=== PATIENT | female | born 1975 | race Two or more races ===

== ENCOUNTER 2019-06-12 14:27 | Inpatient (IN) | payer MEDICAID ==
[~2019-06-12] VITALS: Ht 154.9 cm; Wt 101.0 kg
[2019-06-12 15:29] LABS: Basophils # (auto) 0.1 uL; Basophils % (auto) 0.8 % (0.0-2.0); Eosinophils # (auto) 0.2 uL; Eosinophils % (auto) 2.7 % (0.0-7.0); Hematocrit 39.6 % (36.0-46.0); Hemoglobin 12.7 g/dL (12.2-16.2); Lymphocytes # (auto) 2.1 uL; Lymphocytes % (auto) 24.9 % (10.0-50.0); Mean Corpuscular Hemoglobin 29.8 pg (28.0-32.0); Mean Corpuscular Hgb Conc. 32.1 g/dL (32.0-36.0); Mean Corpuscular Volume 92.7 fL (80.0-100.0); Monocytes # (auto) 0.4 uL; Monocytes % (auto) 4.8 % (0.0-12.0); Neutrophils # (auto) 5.7 uL; Neutrophils % (auto) 66.8 % (37.0-80.0); Nucleated Red Blood Cells % 0.1 %; Platelet Count (auto) 334 10^3/uL (140-450); Red Blood Cells 4.27 10^6/uL (4.0-5.20); Red Cell Distribution Width 14.9 % (11.8-14.3); White Blood Cell 8.5 10^3/uL (4.4-10.8)
[2019-06-12 15:46] LABS: INR 0.93 (0.9-1.15); Partial Thromboplastin Time 25.4 sec (23.64-32.05)
[2019-06-12 15:51] LABS: Albumin 3.4 g/dL (3.4-5.0); Anion Gap 7 (5-15); BUN/Creatinine Ratio 16.3; Blood Urea Nitrogen 13 mg/dL (7-18); Calcium 8.2 mg/dL (8.5-10.1); Carbon Dioxide 26 mmol/L (21-32); Chloride 107 mmol/L (98-107); GFR African American 101 mL/min; GFR Non-African American 83 mL/min; Glucose 106 mg/dL (74-106); Potassium 3.7 mmol/L (3.5-5.1); Sodium 140 mmol/L (136-145)
[2019-06-12 15:56] LABS: Alanine Aminotransferase 45 U/L (13-56); Alkaline Phosphatase 121 U/L (45-117); Aspartate Aminotransferase 32 U/L (15-37); Bilirubin, Total 0.4 mg/dL (0.2-1.0); Total Protein 7.4 g/dL (6.4-8.2)
[2019-06-12] MEDS ORDERED: HYDROcodone-ACET 5/325MG TAB PO PRN (17:15)
[2019-06-12] MEDS ORDERED: NITROGLYCERIN 0.4MG/HR TOPICAL PATCH TD ONE (17:15)
[2019-06-12] MEDS ORDERED: CARVEDILOL 3.125 MG TAB PO ONE (17:15)
[2019-06-12] MEDS ORDERED: FUROSEMIDE 20 MG/2 ML VIAL IV ONE (17:15)
[2019-06-12] MEDS ORDERED: ACETAMINOPHEN 500 MG TAB PO PRN (17:15)
[2019-06-12] MEDS ORDERED: NITROGLYCERIN 0.4 MG SL TAB SL PRN (17:15)
[2019-06-12] MEDS ORDERED: MORPHINE SULF INJ 2 MG/ML SYRINGE 1ML IV PRN (17:15)
[2019-06-12] MEDS ORDERED: ONDANSETRON HCL 4 MG/2 ML VIAL IV PRN (17:15)
[2019-06-12 18:39] LABS: Urine Bacteria FEW /hpf (None Seen); Urine Blood Negative /uL (Negative); Urine Specific Gravity 1.019 (1.001-1.035); Urine WBC 4 /hpf (0 - 5)
[2019-06-12 18:52] LABS: Alcohol, Urine < 3.0 mg/dL (0-5); Amphetamine Screen, Urine POSITIVE (NEGATIVE); Barbiturate Scree,Urine NEGATIVE (NEGATIVE); Benzodiazephine Screen, Urine NEGATIVE (NEGATIVE); Cannabinoid Screen, Urine POSITIVE (NEGATIVE); Cocaine Screen, Urine NEGATIVE (NEGATIVE); Phencyclidine Screen, Urine NEGATIVE (NEGATIVE)
[2019-06-12 18:59] LABS: Opiate Scree,Urine NEGATIVE (NEGATIVE)
[2019-06-12 20:08] VITALS: BP 148/95
--- NOTE | 2019-06-12 20:08 | NUR ---
Telemetry admit from [facility] LOMAS admitted to Telemetry unit after SBAR received. Patient oriented to BELINDA MELENDEZ RN primary RN, unit, room, bed, and unit policies regarding patient care and visiting hours. Patient now on continuous telemetry monitoring, tele box # [id number] and telemetry reading on arrival to unit is sinus rhythm. Patient placed on bedside oxygen, weighed by bedscale and encouraged to call if they need something. All questions and concerns addressed, patient verbalized understanding.
--- NOTE | 2019-06-12 20:10 | NUR ---
Patient provided list of home medications she is suppose to be taken. List was entered into electronic chart and copy was placed in hard chart as well. Patient stated she has not been taking those medications but wanted us to be aware.
[2019-06-12] MEDS ORDERED: INFLUENZA QUAD 2019-2020 0.5ml SYRG IM ONE (21:15)
[2019-06-12] MEDS ORDERED: FAMO-12 PO (21:19)
[2019-06-12] MEDS ORDERED: CARV25TA55 PO (21:19)
[2019-06-12] MEDS ORDERED: LISI10TA6 PO (21:19)
[2019-06-12] MEDS ORDERED: ATOR10TA52 PO (21:19)
[2019-06-12] MEDS ORDERED: ASP81EC PO (21:19)
[2019-06-12] MEDS ORDERED: SPIR25TA8 PO (21:19)
[2019-06-12] MEDS ORDERED: METF-370 PO (21:19)
[2019-06-12] MEDS ORDERED: FURO1TAB31 PO (21:19)
[2019-06-12 22:00] VITALS: BP 140/87
[2019-06-12] MEDS: ATORVASTATIN 20 MG TAB PO SCH (22:21)
[2019-06-12] MEDS: CARVEDILOL 3.125 MG TAB PO SCH (22:21)
--- NOTE | 2019-06-13 01:12 | NUR ---
Hospitalist jordynd: Hospitaljory murillo d/t patient being very anxious and restless. Patient is tossing and turning in bed, b Addendum: 06/13/19 at 0115 by BELINDA MELENDEZ RN RN Patient is tossing and turning in bed appearing to have a panic attack. Hospitalist returned page immediately and new orders received.
[2019-06-13] MEDS ORDERED: LORazepam 0.5 MG TAB PO ONE (01:30)
[2019-06-13 05:00] VITALS: BP 163/113
--- NOTE | 2019-06-13 05:53 | NUR ---
Hospitalist paged: Hospitalist paged d/t patient having an elevated blood pressure of 163/113 with a HR of 79. Patient is currently asymptomatic with no discomfort or distress. RN to continue to monitor and assess patient.
[2019-06-13 06:00] LABS: Basophils # (auto) 0.1 uL; Eosinophils # (auto) 0.2 uL; Eosinophils % (auto) 2.7 % (0.0-7.0); Hematocrit 38.4 % (36.0-46.0); Hemoglobin 12.4 g/dL (12.2-16.2); Lymphocytes # (auto) 1.9 uL; Mean Corpuscular Hemoglobin 29.3 pg (28.0-32.0); Mean Corpuscular Hgb Conc. 32.4 g/dL (32.0-36.0); Mean Corpuscular Volume 90.6 fL (80.0-100.0); Monocytes # (auto) 0.5 uL; Monocytes % (auto) 5.8 % (0.0-12.0); Neutrophils # (auto) 5.3 uL; Neutrophils % (auto) 66.5 % (37.0-80.0); Nucleated Red Blood Cells % 0.1 %; Platelet Count (auto) 354 10^3/uL (140-450); Red Blood Cells 4.24 10^6/uL (4.0-5.20); Red Cell Distribution Width 14.6 % (11.8-14.3)
[2019-06-13 06:16] LABS: INR < 0.93 (0.9-1.15); Partial Thromboplastin Time 25.8 sec (23.64-32.05)
--- NOTE | 2019-06-13 06:20 | NUR ---
Hospitalist returned page: Hospitalist returned page and updated on patient's condition. RN informed to give patient her 1000 blood pressure medications now.
[2019-06-13] MEDS: CARVEDILOL 3.125 MG TAB PO SCH (06:22)
[2019-06-13 06:32] LABS: Calcium 8.4 mg/dL (8.5-10.1); Potassium 3.5 mmol/L (3.5-5.1)
--- NOTE | 2019-06-13 08:00 | NUR ---
Received pt resting sleeping comfortably in bed, call light within reach, no distress noted at this time, will continue to monitor pt.
[2019-06-13 08:24] VITALS: BP 142/99
[2019-06-13] MEDS: ASPirin-EC 81 mg tab PO SCH (09:40)
[2019-06-13] MEDS: FAMOTIDINE 20 MG TAB PO SCH (09:41)
[2019-06-13] MEDS ORDERED: FUROSEMIDE 20 MG/2 ML VIAL IV SCH (10:00)
[2019-06-13] MEDS ORDERED: NITROGLYCERIN 0.4MG/HR TOPICAL PATCH TD SCH (10:00)
[2019-06-13] MEDS ORDERED: LISINOPRIL 10 MG TAB PO SCH (10:00)
[2019-06-13 12:29] VITALS: BP 153/75
[2019-06-13] MEDS: CARVEDILOL 12.5 MG TAB PO SCH ×2 (14:00→21:35)
[2019-06-13 16:37] VITALS: BP 147/86
--- NOTE | 2019-06-13 19:00 | NUR ---
Opening Shift Note Assumed care of patient, awake and alert. No S/S of distress/SOB or pain. Instructed on POC and to call for assist PRN, will continue to monitor for changes Q1hr and PRN.
[2019-06-13] MEDS ORDERED: INFLUENZA QUAD 2019-2020 0.5ml SYRG IM ONE (21:30)
[2019-06-13] MEDS: ATORVASTATIN 20 MG TAB PO SCH (21:36)
[2019-06-13 22:00] VITALS: BP 145/68
[2019-06-14 05:00] VITALS: BP 129/80
[2019-06-14 09:20] VITALS: BP 159/83
[2019-06-14 09:23] VITALS: BP 159/83
[2019-06-14] MEDS: FUROSEMIDE 40 MG/4 ML VIAL IV SCH ×2 (09:31→09:33)
[2019-06-14] MEDS: ASPirin-EC 81 mg tab PO SCH (09:32)
[2019-06-14] MEDS: FAMOTIDINE 20 MG TAB PO SCH (09:32)
[2019-06-14] MEDS: CARVEDILOL 12.5 MG TAB PO SCH ×2 (09:32→22:00)
--- NOTE | 2019-06-14 09:40 | NUR ---
PASSED MORNING MEDICATIONS, PT TOLERATED WELL. DENIES ANY DISCOMFORT, IV TO LFA PATENT AND FLUSHING WELL. BED LOCKED AND IN LOWEST POSITION, CALL LIGHT WITHIN REACH. WILL CONTINUE TO MONITOR.
[2019-06-14 12:45] VITALS: BP 153/89
[2019-06-14 12:49] LABS: Basophils # (auto) 0.2 uL; Basophils % (auto) 2.4 % (0.0-2.0); Eosinophils # (auto) 0.2 uL; Eosinophils % (auto) 2.7 % (0.0-7.0); Hematocrit 40.8 % (36.0-46.0); Hemoglobin 13.7 g/dL (12.2-16.2); Lymphocytes # (auto) 2.2 uL; Lymphocytes % (auto) 27.5 % (10.0-50.0); Mean Corpuscular Hemoglobin 29.7 pg (28.0-32.0); Mean Corpuscular Hgb Conc. 33.5 g/dL (32.0-36.0); Mean Corpuscular Volume 88.7 fL (80.0-100.0); Monocytes # (auto) 0.5 uL; Monocytes % (auto) 5.7 % (0.0-12.0); Neutrophils # (auto) 4.9 uL; Neutrophils % (auto) 61.7 % (37.0-80.0); Platelet Count (auto) 359 10^3/uL (140-450); Red Blood Cells 4.61 10^6/uL (4.0-5.20); Red Cell Distribution Width 14.3 % (11.8-14.3)
[2019-06-14 13:15] LABS: BUN/Creatinine Ratio 17.3; Calcium 8.9 mg/dL (8.5-10.1); Potassium 3.8 mmol/L (3.5-5.1)
[2019-06-14 22:00] VITALS: BP 122/69
[2019-06-14] MEDS: SACUBITRIL-VALSARTAN 24mg/26mg TAB PO SCH (22:13)
[2019-06-14] MEDS: ATORVASTATIN 20 MG TAB PO SCH (22:13)
[2019-06-15 05:00] VITALS: BP 150/87
--- NOTE | 2019-06-15 07:50 | NUR ---
PT AWAKE, ALERT, ORIENTEDx4. DENIES ANY DISCOMFORT. MEASURES TAKEN FOR POSSIBLE ANGIOGRAM TODAY. PT STATES THAT PROCEDURE WILL NOT BE DONE TODAY PER MD EVALUATION YESTERDAY. "PROCEDURE TO HAPPEN IN 6 MONTHS".
[2019-06-15 08:24] VITALS: BP 155/105
[2019-06-15] MEDS: CARVEDILOL 12.5 MG TAB PO SCH (09:27)
[2019-06-15] MEDS: SACUBITRIL-VALSARTAN 24mg/26mg TAB PO SCH (09:27)
[2019-06-15] MEDS: FUROSEMIDE 40 MG/4 ML VIAL IV SCH (09:27)
[2019-06-15] MEDS: FAMOTIDINE 20 MG TAB PO SCH (09:28)
[2019-06-15] MEDS: ASPirin-EC 81 mg tab PO SCH (09:28)
[2019-06-15] MEDS ORDERED: CHOL20007 PO (09:58)
[2019-06-15] MEDS ORDERED: POTA10TA51 PO (09:58)
[2019-06-15] MEDS ORDERED: SPIRONOLACTONE 25 MG TAB PO SCH (10:00)
[2019-06-15 13:00] VITALS: BP 129/82
[2019-06-15] MEDS ORDERED: ASP81EC PO (13:26)
[2019-06-15] MEDS ORDERED: SACU1TAB PO (13:26)
[2019-06-15] MEDS ORDERED: FAM20T PO (13:26)
[2019-06-15] MEDS ORDERED: SPIR25TA88 PO (13:26)
[2019-06-15] MEDS ORDERED: CAR125T PO (13:26)
[2019-06-15] MEDS ORDERED: ATOR20TA50 PO (13:26)
[2019-06-15] MEDS ORDERED: FURO1TAB31 PO (13:30)
[2019-06-15] MEDS ORDERED: METF-370 PO (13:31)
--- NOTE | 2019-06-15 13:40 | NUR ---
PER DR. JOLLEY: TO CANCEL LIFE VEST ORDER. NO LIFE VEST AT THIS TIME PER CARDIOLOGY. PER MD JOLLEY; PT OK TO DC HOME.
[2019-06-15] MEDS ORDERED: INFLUENZA QUAD 2019-2020 0.5ml SYRG IM ONE (16:19)
[2019-06-15 17:06] VITALS: BP 148/82
--- NOTE | 2019-06-15 17:10 | NUR ---
pt refused flu vaccine at this time.
--- NOTE | 2019-06-15 17:12 | NUR ---
Discharge instructions provided to pt. pt verbalized understanding for prescription orders that were sent electronically to pt's preferred pharmacy. Verbalized understanding for acquisition of a primary care provider and follow up with cardiology- Dr. Blair's contact information provided in discharge packet. Community resource contact information packet provided. Educational material provided, all questions and concerns addressed. IV catheter intact, no phlebitis, tele box removed and returned to tele dept. Pt safely escorted out of unit, accompanied by family member.
== END 2019-06-15 17:00 | disposition home or self-care (01) | DRG 194 ==
LOC: ER 14:27 → TELE 14:28 → TELE-WESTW 20:11
PROVIDERS: ADMIT Nurse Practitioner Acute Care; ATTEND Internal Medicine Nephrology
DX: I11.0 Hypertensive heart disease with heart failure (principal); J96.00 Acute respiratory failure, unspecified whether with hypoxia or hypercapnia; I16.1 Hypertensive emergency; I50.23 Acute on chronic systolic (congestive) heart failure; E66.9 Obesity, unspecified; E11.9 Type 2 diabetes mellitus without complications; E78.5 Hyperlipidemia, unspecified; F17.210 Nicotine dependence, cigarettes, uncomplicated; Z80.9 Family history of malignant neoplasm, unspecified; Z91.14 Patient's other noncompliance with medication regimen; Z98.51 Tubal ligation status; Z28.21 Immunization not carried out because of patient refusal; Z68.41 Body mass index [BMI] 40.0-44.9, adult
CPT/HCPCS: 36415; 71045; 80048; 80053; 80307; 81001; 83880; 84484; 85025; 85610; 85730; 86141; 93005; 93306; 94761; 96374; G0378

== ENCOUNTER 2019-10-23 06:07 | Emergency (ER) | payer MEDICAID ==
[~2019-10-23] VITALS: Ht 154.9 cm; Wt 113.4 kg
[~2019-10-23 06:07] MED LIST: ASP81EC PO; ATOR20TA50 PO; CAR125T PO; FAM20T PO; FURO1TAB31 PO; METF-370 PO; SACU1TAB PO; SPIR25TA8 PO; SPIR25TA88 PO
[2019-10-23 07:16] LABS: Basophils # (auto) 0.1 10 ^3/uL (0-0.2); Basophils % (auto) 1.3 % (0.0-2.0); Eosinophils # (auto) 0.2 10 ^3/uL (0-0.8); Eosinophils % (auto) 1.5 % (0.0-7.0); Hematocrit 38.7 % (36.0-46.0); Hemoglobin 12.9 g/dL (12.2-16.2); Lymphocytes % (auto) 18.7 % (10.0-50.0); Mean Corpuscular Hemoglobin 29.3 pg (28.0-32.0); Mean Corpuscular Hgb Conc. 33.3 g/dL (32.0-36.0); Monocytes # (auto) 0.5 10 ^3/uL (0-1.3); Monocytes % (auto) 4.8 % (0.0-12.0); Neutrophils # (auto) 7.7 10 ^3/uL (1.6-8.6); Neutrophils % (auto) 73.7 % (37.0-80.0); Platelet Count (auto) 328 10^3/uL (140-450); Red Cell Distribution Width 15.2 % (11.8-14.3); White Blood Cell 10.5 10^3/uL (4.4-10.8)
[2019-10-23 07:33] LABS: Albumin 3.3 g/dL (3.4-5.0); Anion Gap 4 (5-15); Blood Urea Nitrogen 12 mg/dL (7-18); Calcium 8.4 mg/dL (8.5-10.1); Carbon Dioxide 25 mmol/L (21-32); Chloride 108 mmol/L (98-107); Glucose 139 mg/dL (74-106); INR 0.96 (0.9-1.15); Partial Thromboplastin Time 25.6 sec (23.64-32.05); Potassium 3.8 mmol/L (3.5-5.1); Sodium 137 mmol/L (136-145)
[2019-10-23 07:38] LABS: Alanine Aminotransferase 44 U/L (13-56); Alkaline Phosphatase 127 U/L (45-117); Aspartate Aminotransferase 27 U/L (15-37); BUN/Creatinine Ratio 17.1; Bilirubin, Total 0.3 mg/dL (0.2-1.0); GFR African American 117 mL/min; GFR Non-African American 97 mL/min; Total Protein 7.4 g/dL (6.4-8.2)
[2019-10-23] MEDS ORDERED: FUROSEMIDE 40 MG/4 ML VIAL IV ONE (08:15)
[2019-10-23 08:21] LABS: Urine Bacteria NONE SEEN /hpf (None Seen); Urine Blood 2+ /uL (Negative); Urine Specific Gravity 1.016 (1.001-1.035); Urine WBC 11 /hpf (0 - 5)
[2019-10-23] MEDS ORDERED: cefTRIAXone 1GM/50ML D5W 50 ML IV ONE (09:00)
[2019-10-23 10:33] VITALS: BP 147/82
== END 2019-10-23 10:36 | disposition other institution (70) ==
LOC: ER 06:07
DX: I11.0 Hypertensive heart disease with heart failure (principal); I50.23 Acute on chronic systolic (congestive) heart failure; N39.0 Urinary tract infection, site not specified; E46 Unspecified protein-calorie malnutrition; E11.65 Type 2 diabetes mellitus with hyperglycemia; E78.5 Hyperlipidemia, unspecified; F17.210 Nicotine dependence, cigarettes, uncomplicated
CPT/HCPCS: 36415; 71045; 80053; 81001; 83880; 84484; 85025; 85610; 85730; 93005; 96365; 96375; 99285; J0696; J1940